=== PATIENT | male | born 1995 | race Caucasian/White ===

== ENCOUNTER → 2019-09-22 | Outpatient (CLI) | payer OTHER ==
--- NOTE | 2019-09-22 16:09 | RAD ---
Examination: TESTICULAR/SCROTUM History: Left scrotal pain which has persisted since completion of antibiotic therapy one month ago Comparison/Correlation: None Findings: Scrotal ultrasound exam was performed. Right testicle measures 5 cm x 3 cm x 2.4 cm. Left testicle measures 4.6 cm x 3.2 cm x 2.2 cm. Testicular echotexture bilaterally is normal. Normal flow on color Doppler imaging evident. Spectral Doppler imaging is also unremarkable epididymides are unremarkable. No hydrocele or varicocele noted. No masses identified. Impression: Normal scrotal ultrasound exam. Electronically signed by: Joey Rodriguez MD (09/22/2019 4:06 PM) [id number]
== END | disposition home or self-care (01) ==
LOC: US 15:03
PROVIDERS: ATTEND Family Medicine
DX: N50.82 Scrotal pain (principal)
CPT/HCPCS: 76870